=== PATIENT | male | born 1975 | race Caucasian/White ===

== ENCOUNTER → 2020-03-28 | Emergency (ER) | payer OTHER ==
[~2020-03-28] VITALS: Ht 190.5 cm; Wt 70.0 kg
[2020-03-28 15:24] VITALS: BP 149/90
== END | disposition home or self-care (01) ==
LOC: ER 15:20
DX: S39.012A Strain of muscle, fascia and tendon of lower back, initial encounter (principal); X50.0XXA Overexertion from strenuous movement or load, initial encounter; Y93.89 Activity, other specified; Y92.89 Other specified places as the place of occurrence of the external cause; Y99.8 Other external cause status
CPT/HCPCS: 99282